=== PATIENT | male | born 1980 | race Two or more races ===

== ENCOUNTER 2024-09-05 12:27 | Emergency (ER) | payer SELFPAY ==
[2024-09-05 12:29] VITALS: PULSE 123; RESP 20; BMI 26.6
--- NOTE | 2024-09-05 12:35 | EKG_ITS ---
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
[2024-09-05 12:39] VITALS: BP 104/85; PULSE 117; RESP 17; TEMP 36.8; O2SAT 98
--- NOTE | 2024-09-05 12:41 | PC.NURSE ---
PATIENT BROUGHT IN BY AMBULANCE TO SEIZURE ACTIVITY. PATIENT ALSO ACCOMPANIED BY DAVID TEJEDA. PD REPORT THEY GOT A CALL FOR PERSON ACTING ERRATIC. EMS REPORTS PATIENT HAD SEIZURE LIKE ACTIVITY ON ARRIVAL TO SCENE, EMS REPORT 45 SECONDS OF SEIZURE ACTIVITY FROM THEIR ARRIVAL. EMS ADMINISTERED VERSED 4MG INTRANASAL AND 2MG IV. PATIENT ON ARRIVAL TO ED, PATIENT IS ALERT AND ORIENTED. PATIENT STATES HE WAS COOKING CRYSTAL PRIOR TO EPISODE TODAY.
--- NOTE | 2024-09-05 12:44 | PD.EDSEIZ ---
ED Seizures RME/HPI General Chief Complaint: Seizure Stated Complaint: SEIZURE Time Seen by Provider: 09/05/24 12:39 Arrival date/time: 09/05/24 12:27 RME / HPI RME / HPI Narrative: DR. 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 No previous history of seizures. No other symptoms at this time. At 3PM, patient is now complaining for right knee and right rib pain; there are bruises and superficial abrasions to the right knee and no signs of trauma on the rib area. Related Data Allergies Allergy/AdvReac Type Severity Reaction Status Date / Time No Known Allergies Allergy Verified 09/05/24 12:58 Review of Systems Review of Systems Systems Reviewed: All systems reviewed, normal except as documented Narrative Review of Systems: GEN: No fever, no chills, no weight loss EYES: No discharge, no visual changes, no pain HEENT: No ear pain, no congestion, no sore throat PULM: No shortness of breath, no cough, no congestion CV: No chest pain, no dyspnea on exertion, no palpitations GI: No nausea, no vomiting, no diarrhea, no pain, no constipation : No frequency, no urgency and no dysuria MUSC/SKEL: + right knee (see HPI), + right rib pain (see HPI), no back pain SKIN: No rash PSYCH: No hallucinations, no depression HEME/LYMPH: No easy bleeding or bruising tendencies NEURO: No weakness, no headache, + seizure Past Medical History Past Medical History CARDIAC: Positive Hypertension ENDOCRINE: Positive Diabetes Mellitus Type 2 (PER PATIENT) PSYCHO/SOCIAL: Positive Schizophrenia Social History SMOKING STATUS: Never smoker SUBSTANCE USE: does not use ALCOHOL: Never ED Exam Narrative Physical exam: GENERAL APPEARANCE: alert and oriented x 4, well-developed, well-nourished, no acute distress VITALS: All vitals were reviewed and the pulse ox is 98% on room air, which is normal according to my interpretation. HEENT: Normocephalic, atraumatic; pupils equal, round, reactive to light; EOMI; mucous membranes pink, moist; oropharynx clear NECK: Supple LUNGS: CTABL; no wheezes, no rales, no rhonchi HEART: Regular rate, regular rhythm; normal S1, S2; no murmurs ABDOMEN: non distended; normal BS; soft, no tenderness, no guarding, no rebound; no masses, no organomegaly, no hernia BACK: no CVA tenderness EXTREMITIES: atraumatic; no edema NEUROLOGIC: awake; alert and oriented x4; cranial nerves II-XII grossly intact; no focal sensory or motor deficits PSYCHIATRIC: appropriate mood and affect SKIN: warm, dry, normal color; no rashes; there are bruises and superficial abrasions to the right knee Course Quality Measures none Orders Category Date Time Status Staffing Clerk NOW Care 09/05/24 12:43 Active EKG (ED ONLY) *Do not use* NOW Care 09/05/24 12:35 Completed Insert IV NOW Care 09/05/24 12:35 Active EKG (ED Only) Stat Exams 09/05/24 12:35 Draft Alcohol, Blood Medical Stat Lab 09/05/24 12:49 Completed B-Type Natriuretic Peptide Stat Lab 09/05/24 12:49 Completed CBC Stat Lab 09/05/24 12:49 Completed Comprehensive Metabolic Panel Stat Lab 09/05/24 12:49 Completed Drug Screen,Urine Stat Lab 09/05/24 12:43 Ordered Lipase Stat Lab 09/05/24 12:49 Completed Magnesium Stat Lab 09/05/24 12:49 Completed Partial Thromboplastin Time Stat Lab 09/05/24 12:49 Completed Prothrombin Time with INR Stat Lab 09/05/24 12:49 Completed Troponin I Stat Lab 09/05/24 12:49 Completed Ketorolac Inj [Toradol Inj] Med 09/05/24 15:08 Discontinued 15 mg IVP X1 ONE Vital Signs Vital signs: Vital Signs Temperature 98.2 F 09/05/24 12:39 Pulse Rate 117 H 09/05/24 12:39 Respiratory Rate 17 09/05/24 12:39 Blood Pressure 104/85 H 09/05/24 12:39 Pulse Oximetry (%) 98 09/05/24 12:39 Oxygen Delivery Method Nasal Cannula 09/05/24 12:39 Procedures -ED EKG Interpretation #1: Date of EK09/05/24 Time of EK:37 Rate: 110 Interpretation: Interpreted by me Additional EKG comment: sinus tachycardia, rate 110, no acute ischemic changes Seizure MDM Narrative MDM Narrative:: I, Mya Zafar am scribing for and in the presence of Dr. Phelps. Patient data External records reviewed:: EMS form Clinical information provided by:: patient and EMS Social determinants that could affect healthcare access:: none Patient has the following chronic illnesses:: Chronic auditory hallucinations on trazodone. No previous history of seizures. How is presenting disease/condition affected by chronic disease/condition?: uneffected by Evaluation data The following diagnostics were reviewed and interpreted by me:: lab results and EKG tracing(s) (EKG#1: EKG at 1237 hours. Interpreted by me: sinus tachycardia, rate 110, no acute ischemic changes) Lab and/or radiology exams considered but not ordered:: none Interpretation Summary: No acute findings. Medications / Prescriptions Medications or Prescriptions considered but not ordered:: none Medication administrations:: Medication Administration History Discontinued Medications Ketorolac Tromethamine (Ketorolac Inj 30 Mg/Ml Vial) 15 mg IVP X1 ONE Stop: 09/05/24 15:09 Last Admin: 09/05/24 15:23 Dose: 15 mg Documented By: DB see above if any Consultations Consultation(s) initiated? (list below): No Diagnosis Seizure Differential Diagnosis: intractable seizure disorder, generalized seizure and new onset seizure Most likely diagnosis given after review of the tests above:: Witnessed seizure-like activity Contusion of right ankle Medical clearance for incarceration Admission Indicated Admission indicated?: not indicated Admission Request Was there a request for admission?: No Disposition Plan Disposition Plan: Discharge (to correction) Discharge Attestation Discharge Attestation: The patient and all family members were given an opportunity to ask questions and understood the discharge instructions. Discharge instructions specifically effects, indications for sooner follow up or return to the emergency department, and the expected course of current diagnosis. Patient condition: Stable Discharge Plan Plan Patient Disposition: Long-Term/Court/Law Disposition Comment: Okay to book Problem List Clinical Impression: Witnessed seizure-like activity, Contusion of right ankle, Medical clearance for incarceration Patient/Caregiver Discharge Instructions Education Materials: ED Contusion, Lower Extremity Print Language: [place]
[2024-09-05 12:53] VITALS: PULSE 104
[2024-09-05 13:10] LABS: Basophils % (Auto) 1 % (0-2.5); Eosinophils # (Auto) 0.4 Thou/mm3 (0.0-0.5); Eosinophils % (Auto) 5 % (0-10); Hematocrit 41.8 % (41.0-53.0); Hemoglobin 14.3 g/dL (13.5-16.0); Immature Granulocytes % (Auto) 0 % (0-0); Immature Granulocytes Auto 0.01 Thou/mm3 (0.00-0.00); Lymphocytes # (Auto) 1.7 Thou/mm3 (1.0-4.8); Lymphocytes % (Auto) 23 % (10-50); Mean Corpuscular HGB Conc 34.2 g/dl (31.0-37.0); Mean Corpuscular Volume 85 fL (80-100); Monocytes # (Auto) 0.7 Thou/mm3 (0.0-0.8); Monocytes % (Auto) 10 % (0-12); Neutrophils # (Auto) 4.7 Thou/mm3 (1.8-7.7); Neutrophils % (Auto) 62 % (37-80); Nucleated Red Blood Cell % 0 /100 WBC (0); Platelet Count 282 Thou/mm3 (140-440); RDW Standard Deviation 41.9 fL (35.1-43.9); Red Blood Count 4.93 Miln/mm3 (4.50-5.90); White Blood Count 7.6 Thou/mm3 (3.8-10.6)
[2024-09-05 13:23] LABS: Partial Thromboplastin Time 23.9 Seconds (22.0-36.0); Prothrombin Time 10.8 Seconds (9.0-12.2)
[2024-09-05 13:28] LABS: B-Type Natriuretic Peptide < 20 pg/mL (0-100)
[2024-09-05 13:39] LABS: Alanine Aminotransferase 27 U/L (10-49); Albumin, Serum 4.2 gm/dL (3.5-5.0); Albumin/Globulin Ratio 1.7 (1.2-2.2); Alcohol, Blood Medical < 3.0 mg/dL (0-10.0); Alkaline Phosphatase 80 U/L (46-116); Anion Gap 12 (7-16); Aspartate Amino Transferase 22 U/L (0-34); BUN/Creatinine Ratio 17 Ratio (12-20); Bilirubin,Total 0.4 mg/dL (0.3-1.2); Blood Urea Nitrogen 17 mg/dL (9-23); Calcium 9.8 mg/dL (8.3-10.6); Calcium (Corrected) 9.8 mg/dL (8.5-10.1); Carbon Dioxide 23.3 mMol/L (20.0-31.0); Chloride 109 mMol/L (98-107); Estimated Creatinine Clearance 94.3 mL/min (>60); Globulin 2.5 gm/dL (2.3-3.5); Glucose 94 mg/dL (74-106); Lipase 33 U/L (12-53); Magnesium 1.9 mg/dL (1.6-2.6); Osmolality,Calculated 288 (275-295); Potassium 3.9 mMol/L (3.4-5.1); Sodium 144 mMol/L (136-145); Total Protein 6.7 gm/dL (5.7-8.2); Troponin I < 0.002 ng/mL (0.0-0.045); eGFR > 60 See Note
[2024-09-05 14:00] VITALS: BP 117/70; PULSE 89; RESP 18; TEMP 36.6; O2SAT 100
[2024-09-05] MEDS: KETOROLAC INJ 30 MG/ML VIAL 15 MG IVP (15:23)
[2024-09-05 15:32] VITALS: BP 132/82; PULSE 88; RESP 18; TEMP 36.9; O2SAT 99
== END 2024-09-05 15:33 ==
LOC: SERX 15:44
PROVIDERS: Emergency Provider Emergency Medicine
DX: Z02.89 Encounter for other administrative examinations (principal); R56.9 Unspecified convulsions; S90.01XA Contusion of right ankle, initial encounter; X58.XXXA Exposure to other specified factors, initial encounter
CPT/HCPCS: 36415; 80053; 80307; 80320; 83690; 83735; 83880; 84484; 85025; 85610; 85730; 93005; 96374; 99284; J1885; G0480